=== PATIENT | male | born 1945 | race Caucasian/White ===

== ENCOUNTER 2021-09-20 14:19 | Inpatient (IN) | payer MEDICARE, OTHER ==
[~2021-09-20] VITALS: Ht 167.6 cm; Wt 66.7 kg
[~2021-09-20 14:19] MED LIST: CARBIDOPA-LEVO1 EAC7 PO; LIPITOR20 MG PO; LOPRESSOR25 MG PO; NITROQUIK SL0.4 MG SL
[2021-09-20 15:44] LABS: BILIRUBIN 1+ mg/dL (NEGATIVE); BLOOD NEGATIVE Ery/uL (NEGATIVE); CLARITY CLEAR (CLEAR); COLOR YELLOW (YELLOW); GLUCOSE (U) NORMAL (NORMAL); LEUKOCYTES NEGATIVE Leu/uL (NEGATIVE); NITRITE NEGATIVE (NEGATIVE); PROTEIN TRACE (LOW) mg/dL (NEGATIVE); SPECIFIC GRAVITY >=1.030 (1.001-1.030); UROBILINOGEN 0.2 mg/dL (0.2-1.0); pH 5.5 (5.0-9.0)
[2021-09-20 15:49] LABS: BARBITURATES NEGATIVE (NEGATIVE); ECSTASY (MDMA) NEGATIVE (NEGATIVE); MARIJUANA (THC) NEGATIVE (NEGATIVE); METHADONE NEGATIVE (NEGATIVE); OPIATES NEGATIVE (NEGATIVE)
[2021-09-20 15:50] LABS: AMPHETAMINES NEGATIVE (NEGATIVE); OXYCODONE NEGATIVE (NEGATIVE)
[2021-09-20 15:52] LABS: BASOPHIL 0.3 % (0-2); EOSINOPHIL 0 % (0-7); HCT 36.1 % (42.0-52.0); HGB 11.9 g/dl (13.2-18.0); LYMPHOCYTE 7.7 % (15-48); MCV 87.8 fL (78.0-100.0); MONOCYTE 7.2 % (0-12); MPV 11.6 fL (6.0-9.5); NEUTROPHIL 83.9 % (41-80); NRBC 0; PLT 261 K/uL (150-400); RBC 4.11 M/uL (4.70-6.00); RDW 14.6 % (11.5-14.0); WBC 12.2 K/uL (4.0-10.5)
[2021-09-20 16:16] LABS: BACTERIA TRACE; SQUAMOUS EPITHELIAL CELLS RARE; URINARY WBC RARE
[2021-09-20 16:37] LABS: INFLUENZA A NAA NEGATIVE (NEGATIVE)
[2021-09-20 16:44] LABS: CORONAVIRUS 2019 SARS-COV-2 POSITIVE (NEGATIVE)
[2021-09-20 16:47] LABS: LACTIC ACID 1.9 mmol/L (0.4-1.9)
[2021-09-20 17:05] LABS: ALBUMIN 2.7 g/dL (3.4-5.0); ALKALINE PHOSHATASE 84 U/L (46-116); ALT 34 U/L (16-63); AST 42 U/L (15-37); BILIRUBIN - TOTAL 1.1 mg/dL (0.2-1.0); BUN 30 mg/dL (7-18); BUN/CREAT RATIO (CALC) 14.2 RATIO; CHLORIDE 102 mmol/L (98-107); CO2 (BICARBONATE) 30 mmol/L (21-32); CPK 939 U/L (39-308); GLOBULIN (CALCULATION) 4.6 g/dL; GLUCOSE 119 mg/dL (74-106); LDH 259 U/L (85-227); POTASSIUM 4.8 mmol/L (3.5-5.1); TOTAL PROTEIN 7.3 g/dL (6.4-8.2)
[2021-09-22 04:33] LABS: BASOPHIL 0.8 % (0-2); EOSINOPHIL 2.3 % (0-7); HCT 28.4 % (42.0-52.0); HGB 9.2 g/dl (13.2-18.0); LYMPHOCYTE 20.7 % (15-48); MCH 28.7 pg (25.0-31.0); MCHC 32.4 g/dL (32.0-36.0); MCV 88.5 fL (78.0-100.0); MONOCYTE 9.3 % (0-12); MPV 11.3 fL (6.0-9.5); NRBC 0; PLT 166 K/uL (150-400); RBC 3.21 M/uL (4.70-6.00); WBC 6.6 K/uL (4.0-10.5)
[2021-09-22 05:07] LABS: ALBUMIN 2.1 g/dL (3.4-5.0); BILIRUBIN - TOTAL 0.5 mg/dL (0.2-1.0); C-REACTIVE PROTEIN 8.7 mg/dL (<=0.90); CREATININE 0.8 mg/dL (0.67-1.17); GLOBULIN (CALCULATION) 3.2 g/dL; PHOSPHORUS 2.4 mg/dL (2.6-4.7); POTASSIUM 3.5 mmol/L (3.5-5.1)
[2021-09-22 05:17] LABS: TOTAL PROTEIN 5.3 g/dL (6.4-8.2)
[2021-09-23] MEDS ORDERED: AZITHROMYCIN250 MG PO (13:46)
[2021-09-23] MEDS ORDERED: CEFDINIR300 MG PO (13:46)
== END 2021-09-23 14:36 | disposition home health service (06) | DRG 682 ==
LOC: FER 14:19 → FMS 09-21 14:02
PROVIDERS: Emergency Medicine; Nurse Practitioner; ADMIT Internal Medicine
PROC: 8E0ZXY6 Isolation (ICD-10-PCS; principal; 2021-09-21)
DX: N17.9 Acute kidney failure, unspecified (principal); U07.1 COVID-19; G93.41 Metabolic encephalopathy; J18.9 Pneumonia, unspecified organism; G20 Parkinson's disease; E86.0 Dehydration; I10 Essential (primary) hypertension; F17.220 Nicotine dependence, chewing tobacco, uncomplicated; Z96.651 Presence of right artificial knee joint; Z98.42 Cataract extraction status, left eye; Z90.49 Acquired absence of other specified parts of digestive tract; Z98.890 Other specified postprocedural states; Z79.899 Other long term (current) drug therapy
CPT/HCPCS: 36415; 36600; 70450; 71045; 71250; 80053; 80305; 81001; 82140; 82550; 82728; 82803; 83605; 83615; 83735; 84100; 84145; 84439; 84443; 84484; 85025; 86140; 87040; 87088; 93005; 96372; G0480; J0456; J0696; J1650; J2543; J7030; J7050; U0002